=== PATIENT | female | born 1950 | race Caucasian/White ===

== ENCOUNTER 2016-11-27 06:59 | Emergency (ER) | payer MEDICARE, BC ==
--- NOTE | 2016-11-29 13:16 | ER ---
ADMIT: 11/27/2016 RM/LOC: ER [facility] MR#: [id number] [facility] [address] [place] [id number] LYDIA MELO Elvia [address] [place] [id number] Emergency Room Report SEX: F AGE: 66 : 1950 DATE: 11/27/2016 The patient is a 66-year-old female with a past medical history of gastroesophageal reflux disease and hypothyroidism came to the ER with chief complaint of epigastric and left upper quadrant pain. The pain started about 2 days ago, it is waxing and waning and was sudden in onset, pain is still present. At the moment, it is mild in severity and is aching and painful. The patient also complains of nausea without vomiting. The last bowel movement was yesterday and was normal. Pain does not relieve with anything and does not exacerbate with anything. The patient states pain is more like pressure-like in the epigastric and left upper quadrant. The patient has been compliant with her GERD medications. PHYSICAL EXAMINATION: HEAD and NECK: Normal. CHEST: Clear bilaterally with normal S1, S2 without any murmurs. ABDOMEN: There were no abdominal tenderness or rebound or guarding with normal bowel sounds. EXTREMITIES: Normal peripheral pulses and the rest of the physical exam is noncontributory. The patient received GI cocktail, which relieved the pain substantially, CBC was noncontributory. CMP was also normal and urine was also negative for any infections or stones. The patient was observed, reexamined, abdominal exam was benign. The patient had no pain or discomfort and was discharged to home with return precautions, and follow up with the primary doctor. Cl Charles MD/ cortney JOB #: [id number] CC: Cl Charles MD, Attending Physician Margaux Del Cid MD, Family Physician
== END 2016-11-27 08:55 | disposition home or self-care (01) ==
LOC: ER 06:59
DX: R10.13 Epigastric pain (principal); E03.9 Hypothyroidism, unspecified; Z98.890 Other specified postprocedural states; Z79.899 Other long term (current) drug therapy

== ENCOUNTER → 2017-03-14 | Outpatient (CLI) | payer MEDICARE, BC | END | disposition home or self-care (01) | LOC: RAD.S 09:44 | DX: Z12.31 Encounter for screening mammogram for malignant neoplasm of breast (principal) ==